=== PATIENT | female | born 1955 | race Native Hawaiian/Other Pacific Islander ===

== ENCOUNTER → 2025-07-27 | Outpatient (CLI) | payer MEDICARE, OTHER ==
[~2025-07-27] MED LIST: CYCL10 PO; HYDSUL200 PO; MELO7.5 PO; METF500 PO; OXYACE5T PO; PIOG15 PO; RXOXYACE PO
[2025-07-27 16:14] LABS: Ferritin, Serum 5.0 ng/mL (8-252); Total Iron Binding Capacity 478.0 ug/dL (250-450)
== END ==
LOC: LAB 09:14 → LAB SHORT 09:14
PROVIDERS: Internal Medicine Hematology & Oncology
DX: E61.1 Iron deficiency (principal)
CPT/HCPCS: 82728; 83540; 83550